=== PATIENT | female | born 1945 | race Caucasian/White ===

== ENCOUNTER 2016-11-03 06:04 | Day surgery (SDC) | payer OTHER ==
[~2016-11-03] VITALS: Ht 170.2 cm; Wt 105.9 kg
[~2016-11-03 06:04] MED LIST: ARIP10TA14 PO; ASPI-1093 PO; ATOR40TA28 PO; BESIFLOXACIN HCL 0.6% 5 ML OPHTHALMIC SUSPENSION OS ONE; BUPR-93 PO; DICLOFENAC SODIUM 0.1% 2.5 ML OPHTHALMIC SOLUTION OS ONE; INSLAN SQ; INSNOV SQ; METO-325 PO; RINGERS SOLUTION,LACTATED 500 ML IV ONE; VENL75 PO; VITAD50000 PO
[2016-11-03] MEDS ORDERED: RINGERS SOLUTION,LACTATED 500 ML IV ONE (06:16)
[2016-11-03] MEDS ORDERED: DICLOFENAC SODIUM 0.1% 2.5 ML OPHTHALMIC SOLUTION ONE (06:16)
[2016-11-03] MEDS ORDERED: PHENYLEPHRINE HCL 2.5% 2 ML OPHTHALMIC SOLUTION ONE (06:17)
[2016-11-03] MEDS ORDERED: TROPICAMIDE 1% 2 ML OPHTHALMIC SOLUTION ONE (06:17)
[2016-11-03] MEDS ORDERED: BESIFLOXACIN HCL 0.6% 5 ML OPHTHALMIC SUSPENSION ONE (06:17)
[2016-11-03] MEDS: PHENYLEPHRINE HCL 2.5% 2 ML OPHTHALMIC SOLUTION OS SCH ×2 (07:10→07:16)
[2016-11-03] MEDS: TROPICAMIDE 1% 2 ML OPHTHALMIC SOLUTION OS SCH ×2 (07:10→07:15)
[2016-11-03 07:12] LABS: GLUCOSE COMMENT 1 Doctor Notified; GLUCOSE,POINT OF CARE 92 MG/DL (70-110)
[2016-11-03] MEDS ORDERED: LIDOCAINE HCL/PF 1% 2 ML VIAL INJ ONE (12:00)
[2016-11-03] MEDS ORDERED: MIDAZOLAM HCL 2 MG/2 ML VIAL IVP ONE (12:00)
[2016-11-03] MEDS ORDERED: POVIDONE-IODINE 15 ML SOLUTION UD TP ONE (12:00)
[2016-11-03] MEDS ORDERED: HYALURONATE SODIUM 12 MG/ML 0.8 ML SYRINGE IO ONE (12:00)
[2016-11-03] MEDS ORDERED: FentaNYL CITRATE-PF 100 MCG/2 ML VIAL IVP ONE (12:00)
[2016-11-03] MEDS ORDERED: TETRACAINE HCL VISCOUS 0.5% 0.6 ML OPHTHALMIC SOLUTION OS ONE (12:00)
[2016-11-03] MEDS ORDERED: BALANCED SALT 15 ML OPHTHALMIC IRRIG.SOLN OS ONE (12:00)
[2016-11-03] MEDS ORDERED: DEXAMETHASONE SOD PHOS 4 MG/ML VIAL IVP ONE (12:00)
[2016-11-03] MEDS ORDERED: HYALURONATE SOD/CHONDROITIN SOD 0.5 ML VIAL IO ONE (12:00)
== END 2016-11-03 09:45 | disposition home or self-care (01) ==
LOC: SURGERY 06:04
PROVIDERS: ATTEND Specialist
DX: E10.22 Type 1 diabetes mellitus with diabetic chronic kidney disease (principal); H25.012 Cortical age-related cataract, left eye; I12.9 Hypertensive chronic kidney disease with stage 1 through stage 4 chronic kidney disease, or unspecified chronic kidney disease; N18.9 Chronic kidney disease, unspecified; E78.5 Hyperlipidemia, unspecified; F32.9 Major depressive disorder, single episode, unspecified; K21.9 Gastro-esophageal reflux disease without esophagitis; E66.9 Obesity, unspecified; Z90.710 Acquired absence of both cervix and uterus; Z91.040 Latex allergy status; Z88.8 Allergy status to other drugs, medicaments and biological substances; Z79.4 Long term (current) use of insulin; Z98.890 Other specified postprocedural states; Z87.891 Personal history of nicotine dependence
CPT/HCPCS: 66984; 82962; 93005; C1780; J2250; J3010; J7120; J1100; J3490

== ENCOUNTER 2016-12-08 07:30 | Day surgery (SDC) | payer OTHER ==
[~2016-12-08] VITALS: Ht 170.2 cm; Wt 103.2 kg
[~2016-12-08 07:30] MED LIST changes: -BESIFLOXACIN HCL 0.6% 5 ML OPHTHALMIC SUSPENSION OS ONE; +DEXAMETHASONE SOD PHOS 4 MG/ML VIAL IVP ONE; -DICLOFENAC SODIUM 0.1% 2.5 ML OPHTHALMIC SOLUTION OS ONE; +FentaNYL CITRATE-PF 100 MCG/2 ML VIAL IVP ONE; +HYALURONATE SOD/CHONDROITIN SOD 0.5 ML VIAL IO ONE; +HYALURONATE SODIUM 12 MG/ML 0.8 ML SYRINGE IO ONE; +LIDOCAINE HCL/PF 1% 2 ML VIAL INJ ONE; +MIDAZOLAM HCL 2 MG/2 ML VIAL IVP ONE; +POVIDONE-IODINE 10% 15 ML SOLUTION UD TP ONE; -RINGERS SOLUTION,LACTATED 500 ML IV ONE; +TETRACAINE HCL VISCOUS 0.5% 0.6 ML OPHTHALMIC SOLUTION OS ONE
[2016-12-08] MEDS ORDERED: RINGERS SOLUTION,LACTATED 500 ML IV ONE ×2 (07:38→08:00)
[2016-12-08] MEDS ORDERED: MOXIFLOXACIN HCL 0.5% 3 ML OPHTHALMIC SOLUTION ONE (07:46)
[2016-12-08] MEDS ORDERED: DICLOFENAC SODIUM 0.1% 2.5 ML OPHTHALMIC SOLUTION ONE (07:46)
[2016-12-08] MEDS ORDERED: TROPICAMIDE 1% 2 ML OPHTHALMIC SOLUTION ONE (07:46)
[2016-12-08] MEDS ORDERED: PHENYLEPHRINE HCL 2.5% 2 ML OPHTHALMIC SOLUTION ONE (07:46)
[2016-12-08] MEDS ORDERED: MOXIFLOXACIN HCL 0.5% 3 ML OPHTHALMIC SOLUTION OD ONE (08:00)
[2016-12-08] MEDS ORDERED: DICLOFENAC SODIUM 0.1% 2.5 ML OPHTHALMIC SOLUTION OD ONE (08:00)
[2016-12-08] MEDS: TROPICAMIDE 1% 2 ML OPHTHALMIC SOLUTION OD SCH ×2 (08:25→08:35)
[2016-12-08] MEDS: PHENYLEPHRINE HCL 2.5% 2 ML OPHTHALMIC SOLUTION OD SCH ×2 (08:26→08:35)
[2016-12-08 08:29] LABS: GLUCOSE,POINT OF CARE 180 MG/DL (70-110)
== END 2016-12-08 14:50 | disposition home or self-care (01) ==
LOC: SURGERY 07:30
PROVIDERS: ATTEND Specialist
DX: E10.36 Type 1 diabetes mellitus with diabetic cataract (principal); H25.011 Cortical age-related cataract, right eye; I10 Essential (primary) hypertension; K21.9 Gastro-esophageal reflux disease without esophagitis; F32.9 Major depressive disorder, single episode, unspecified; E66.9 Obesity, unspecified; Z79.4 Long term (current) use of insulin; Z90.49 Acquired absence of other specified parts of digestive tract; Z90.710 Acquired absence of both cervix and uterus; Z88.8 Allergy status to other drugs, medicaments and biological substances
CPT/HCPCS: 66984; 82962; C1780; J1100; J2250; J3010; J3490 ×2; J7120